=== PATIENT | male | born 1950 | race Hispanic/Latino ===

== ENCOUNTER → 2020-03-20 18:52 | Emergency (ER) | payer BC, OTHER ==
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
== END | disposition short-term general hospital (02) ==
LOC: MADERS 18:52
DX: S05.8X2A Other injuries of left eye and orbit, initial encounter (principal); W22.8XXA Striking against or struck by other objects, initial encounter; Y99.0 Civilian activity done for income or pay
CPT/HCPCS: 70450; 70480

== ENCOUNTER 2020-10-17 10:36 | Outpatient (CLI) | payer SELFPAY | END 2020-10-17 10:37 | disposition home or self-care (01) | LOC: MADRAD 10:36 | PROVIDERS: ATTEND Registered Nurse | DX: M79.671 Pain in right foot (principal); S92.351A Displaced fracture of fifth metatarsal bone, right foot, initial encounter for closed fracture ==